=== PATIENT | female | born 1990 | race Caucasian/White ===

== ENCOUNTER 2020-08-08 20:52 | Emergency (ER) | payer OTHER ==
[~2020-08-08] VITALS: Ht 157.5 cm; Wt 69.9 kg
[2020-08-08 23:34] VITALS: BP 117/70
== END 2020-08-08 23:34 | disposition home or self-care (01) ==
LOC: ED 20:52
DX: R09.1 Pleurisy (principal); R07.89 Other chest pain
CPT/HCPCS: J1885